=== PATIENT | male | born 1980 | race Caucasian/White ===

== ENCOUNTER 2016-10-21 17:14 | Emergency (ER) | payer MEDICAID ==
[~2016-10-21] VITALS: Ht 175.3 cm; Wt 93.4 kg
[2016-10-21 18:36] VITALS: BP 152/96
[2016-10-21] MEDS ORDERED: FLAGYL250 MG PO (18:55)
[2016-10-21] MEDS ORDERED: GOOD SENSE OMEP20 MG PO (18:55)
--- NOTE | 2016-10-21 20:26 | NUR ---
TO ER BED 1
--- NOTE | 2016-10-21 20:30 | NUR ---
36 Y/O M HERE C/O R ABD PAIN X 1 WK. PT STATES HAD N/VD ON Friday10/17/16 AND WAS SEEN BY PMD. PT WAS GIVEN ZOFRAM AND LOMOTIL FOR DIARRHEA AND HAS BEING CONSTIPATED SINCE TEN. NO S/S OF DISTRESS NOTED AT THIS MOMENT.
[2016-10-21 23:12] VITALS: BP 141/81
--- NOTE | 2016-10-21 23:12 | NUR ---
PER ER MD Patient STABLE FOR discharged with v/s stable. Written and verbal after care instructions given and explained. Patient alert, oriented and verbalized understanding of instructions. Ambulatory with steady gait. All questions addressed prior to discharge. ID band removed. Patient advised to follow up with PMD OR COME BACK TO ER IF CONDITION WORSENS. Rx of LACTULOSE given. Patient educated on indication of medication including possible reaction and side effects. Opportunity to ask questions provided and answered.
== END 2016-10-21 23:12 | disposition home or self-care (01) ==
LOC: MED 17:14
DX: K59.00 Constipation, unspecified (principal); R03.0 Elevated blood-pressure reading, without diagnosis of hypertension; Z88.0 Allergy status to penicillin

== ENCOUNTER 2020-07-20 12:49 | Inpatient (IN) | payer MEDICAID, SELFPAY ==
[~2020-07-20] VITALS: Ht 172.7 cm; Wt 99.8 kg
[~2020-07-20 12:49] MED LIST: METR-520 PO; OMEP20TC12 PO
[2020-07-20 13:03] VITALS: BP 150/90
--- NOTE | 2020-07-20 13:15 | NUR ---
Pt c/o lower abdominal pain with left groin pain. pt reports penile and testicle swelling with painful urination and dsyuria. Reports that pain began when he stretched upon waking up approx 3-4 days ago. HX: LEFT INGORIN HERNIA REPAIRMENT
[2020-07-20 14:31] LABS: BASOPHILS # (AUTO) 0.2 K/uL (0.00-0.22); BASOPHILS % (AUTO) 4.9 % (0.0-2.0); EOSINOPHILS # (AUTO) 0.1 K/uL (0-0.4); EOSINOPHILS % (AUTO) 1.6 % (0.0-4.0); HEMATOCRIT 20.4 % (36-52); LYMPHOCYTES # (AUTO) 0.5 K/uL (2.0-11.5); LYMPHOCYTES % (AUTO) 11.7 % (20.5-51.1); MEAN CORPUSCULAR HEMOGLOBIN 36 pg (27-31); MEAN CORPUSCULAR HGB CONC 34 g/dL (33-37); MEAN CORPUSCULAR VOLUME 105.5 fL (80-94); MONOCYTES # (AUTO) 0.5 K/uL (0.8-1.0); MONOCYTES % (AUTO) 12.1 % (1.7-9.3); NEUTROPHILS % (AUTO) 69.7 % (42.2-75.2); PLATELET COUNT (AUTO) 71 K/uL (140-450); RED BLOOD CELL COUNT(AUTO) 1.93 MIL/uL (4.20-6.10); RED CELL DISTRIBUTION WIDTH 15.2 % (11.6-13.7); WHITE BLOOD COUNT (AUTO) 4.4 K/uL (4.8-10.8)
--- NOTE | 2020-07-20 14:44 | NUR ---
CRITICAL LABS RECEIVED FROM LAB ANKIT): HGB- 7 HCT- 20.4
--- NOTE | 2020-07-20 14:46 | NUR ---
DR HOOD MADE AWARE OF CRITICAL LABS
[2020-07-20 14:56] LABS: ALBUMIN 1.6 g/dL (3.4-5.0); CARBON DIOXIDE 19.7 mmol/L (21-32); CREATININE 1.1 mg/dL (0.6-1.3); POTASSIUM 4.7 mmol/L (3.5-5.1); TOTAL BILIRUBIN 6.1 mg/dL (0.0-1.0)
--- NOTE | 2020-07-20 15:36 | NUR ---
PARTH SWAB COLLECTED AND SENT TO THE LAB.
[2020-07-20 17:34] LABS: PROTHROMBIN TIME 18.1 secs (10.8-13.4)
[2020-07-20] MEDS ORDERED: guaiFENesin DM 200/20 MG-10 ML 10 ML UDC PO PRN (18:35)
[2020-07-20] MEDS ORDERED: ONDANSETRON 4 MG/2 ML VIAL IM/IVP PRN (18:35)
[2020-07-20] MEDS ORDERED: DOCUSATE SODIUM 100 MG GELCAP PO PRN (18:35)
[2020-07-20] MEDS ORDERED: POTASSIUM CHLORIDE 10 MEQ TABER PO PRN (18:35)
[2020-07-20] MEDS ORDERED: ACETAMINOPHEN 325 MG TAB PO PRN (18:35)
--- NOTE | 2020-07-20 18:51 | NUR ---
[facility]
[2020-07-20] MEDS: NACL 0.9% 1,000 ML IV SCH (19:07)
--- NOTE | 2020-07-20 19:10 | NUR ---
recived report from [facility]. transfer of care at this time.
--- NOTE | 2020-07-20 19:14 | NUR ---
REPORT GAVE TO HANNAH ZAMUDIO. TX OF CARE AT THIS TIME.
--- NOTE | 2020-07-20 19:15 | NUR ---
rad at bedside.
[2020-07-20 19:17] LABS: CHOL/HDL RATIO 4.4 (1-4.5); FREE T4 (FREE THYROXINE) 1.39 ng/dL (0.76-1.46); THYROID STIMULATING HORMONE 2.07 uIU/mL (0.34-3.74)
--- NOTE | 2020-07-20 19:30 | NUR ---
CALLED NUTRITION TO CHECK ON STATUS OF FOOD ORDER
--- NOTE | 2020-07-20 19:45 | NUR ---
DINNER TRAY PROVIDED TO PT.
--- NOTE | 2020-07-20 20:00 | NUR ---
CALLED TO GIVE REPORT TO HANNAH OH. EXT. [id number]
--- NOTE | 2020-07-20 20:00 | NUR ---
RECEIVED PATIENT IN STABLE CONDITION FROM ER NURSE FOR CONTINUITY OF CARE. AAOX4. RESPIRATIONS EVEN, UNLABORED. SKIN ASSESSMENT COMPLETED. SKIN WARM, DRY AND INTACT. IV SITE TO RIGHT AC 18G PATENT/INTACT, INFUSING FLUIDS WELL. PATIENT C/O LOWER LEFT ABDOMINAL PAIN. WILL MEDICATE ORDERED. NO S/S ACUTE DISTRESS. ABDOMEN ROUND, NONTENDER. BOWEL SOUNDS ACTIVE X4 QUADRANTS. PATIENT IS CONTINENT OF B/B. MRSA SCREEN COMPLETED. PATIENT ORIENTED TO ROOM/STAFF AND CALL LIGHT. PLAN OF CARE DISCUSSED. CALL LIGHT WITHIN REACH. Addendum: 07/20/20 at 2303 by Christina Holly RN ADD: PATIENT HAS A CH CATHETER WITH DARK RED URINE DRAINING TO GRAVITY.
--- NOTE | 2020-07-20 20:24 | NUR ---
Patient will be admitted to care of [facility]. Admited to TELE. Will go to room 105B. Belongings list completed. Report to HANNAH OH.
[2020-07-20] MEDS: HYDROcodone/APAP 7.5/325 MG 1 TAB PO PRN (20:56)
--- NOTE | 2020-07-20 20:56 | NUR ---
PATIENT C/O ACHING LEFT LOWER ABDOMINAL PAIN 02/15. MEDICATED ORDERED.
[2020-07-20 21:38] LABS: APPEARANCE,URINE CLEAR (CLEAR); BILIRUBIN,URINE 2+ (NEGATIVE); BLOOD, URINE NEGATIVE (NEGATIVE); COLOR,URINE YELLOW (YELLOW); LEUKOCYTE ESTERASE ,URINE NEGATIVE (NEGATIVE); NITRITE, URINE NEGATIVE (NEGATIVE); UGLUCOSE NEGATIVE (NEGATIVE)
[2020-07-20 21:47] LABS: BARBITURATE, URINE NEGATIVE ng/ml (NEG <=200); BENZODIAZEPINE, URINE NEGATIVE ng/mL (NEG <=200); CANNABINOID, URINE NEGATIVE ng/mL (NEG <=50); COCAINE, URINE NEGATIVE ng/mL (NEG <=300); OPIATE, URINE NEGATIVE ng/mL (NEG <=2000); PHENCYCLIDINE SCREEN,URINE NEGATIVE ng/mL (NEG <=25)
--- NOTE | 2020-07-20 21:56 | NUR ---
REASSESSED PAIN LEVEL AT 2/10, TOLERABLE PAIN LEVEL.
[2020-07-20] MEDS: ZOLPIDEM 5 MG TAB PO PRN (22:33)
--- NOTE | 2020-07-20 23:02 | NUR ---
PATIENT IS ON HIS PHONE AND IN NO DISTRESS AT THIS TIME.
[2020-07-21] VITALS: BP 107/64
--- NOTE | 2020-07-21 01:37 | NUR ---
PATIENT IS ASLEEP. NO S/S ACUTE DISTRESS. CALL LIGHT WITHIN REACH.
--- NOTE | 2020-07-21 03:35 | NUR ---
MADE ROUNDS. PATIENT IS ASLEEP. NO S/S ACUTE DISTRESS. CALL LIGHT WITHIN REACH.
[2020-07-21 04:00] VITALS: BP 107/69
--- NOTE | 2020-07-21 05:00 | NUR ---
PATIENT IS SLEEPING WELL. NO C/O PAIN. NO S/S ACUTE DISTRESS. CALL LIGHT WITHIN REACH.
[2020-07-21 06:32] LABS: BASOPHILS % (AUTO) 1.1 % (0.0-2.0); EOSINOPHILS # (AUTO) 0.1 K/uL (0-0.4); LYMPHOCYTES # (AUTO) 0.7 K/uL (2.0-11.5); LYMPHOCYTES % (AUTO) 23.2 % (20.5-51.1); MEAN CORPUSCULAR HEMOGLOBIN 37 pg (27-31); MEAN CORPUSCULAR HGB CONC 35 g/dL (33-37); MEAN CORPUSCULAR VOLUME 105.5 fL (80-94); MONOCYTES # (AUTO) 0.4 K/uL (0.8-1.0); MONOCYTES % (AUTO) 12.2 % (1.7-9.3); NEUTROPHILS # (AUTO) 1.8 K/uL (1.8-7.7); NEUTROPHILS % (AUTO) 60.5 % (42.2-75.2); PLATELET COUNT (AUTO) 55 K/uL (140-450); RED BLOOD CELL COUNT(AUTO) 1.68 MIL/uL (4.20-6.10); RED CELL DISTRIBUTION WIDTH 15.4 % (11.6-13.7)
[2020-07-21 06:50] LABS: CARBON DIOXIDE 20.6 mmol/L (21-32); CREATININE 1.2 mg/dL (0.6-1.3); POTASSIUM 4.6 mmol/L (3.5-5.1)
[2020-07-21 07:15] LABS: HEMOGLOBIN 6.2 g/dL (12.0-18.0)
[2020-07-21 07:16] LABS: HEMATOCRIT 17.8 % (36-52)
[2020-07-21 08:00] VITALS: BP 130/76
--- NOTE | 2020-07-21 08:42 | NUR ---
PATIENT HAS BEEN SCREENED AND CATEGORIZED MODERATE NUTRITION RISK. PATIENT WILL BE SEEN WITHIN 3-5 DAYS OF ADMISSION. 07/23/20 07/25/[address]
[2020-07-21] MEDS: PANTOPRAZOLE 40 MG TABEC PO SCH (09:33)
[2020-07-21] MEDS: SODIUM CHLORIDE 1 GM TAB PO SCH (09:33)
--- NOTE | 2020-07-21 10:15 | NUR ---
PT W/ NO PAIN OR DISCOMFORT IN SEMIFOWLERS.
[2020-07-21] MEDS: NACL 0.9% 1,000 ML IV SCH (11:37)
[2020-07-21] MEDS: ACETAMINOPHEN 325 MG TAB PO SCH ×3 (12:27→20:28)
--- NOTE | 2020-07-21 12:58 | NUR ---
SOCIAL WORK NOTE: Patient's Orientation Person Situation Place Time Information Provided By PATIENT Comments SW CONTACTED PATIENT TELEPHONICALLY AND COMPLETED ASSESSMENT. SW VERIFIED DEMOGRAPHICS. PATIENT PROVIDED ALTERATIVE EMERGENCY CONTACT: OTILIA HERNANDEZ [phone] BECAUSE EMERGENCY CONTACT ON FACE SHEET WAS INCORRECT. Jail Keeper, Realtionship and Phone Number OTILIA RAY [phone] Healthcare Power of Vegetable Farmworker No Does Patient Have a POLST No Identifying Problems Substance Abuse Is A Social Work Consult Needed No Mandate Report Filed No Explanation Of Identifying Problems PATIENT IS A 40-YEAR-OLD MALE ADMITTED FOR HYPONATREMIA AND SEVERE ANEMIA. PATIENT HAS PMHX OF ETOH ABUSE AND LIVER CIRRHOSIS. SW INQUIRED ABOUT SUBSTANCE ABUSE BUT PATIENT REFUSED SUBSTANCE ABUSE RESOURCES AND STATED HE DOES NOT HAVE A PROBLEM. PATIENT STATED THAT HE DRINKS 6 BEERS A DAY. PATIENT DENIED MENTAL HEALTH HISTORY. Admitted From Home Pre-Admission Level Of Functioning Status Independent/Ambulatory Prior Resources/Services Used In Last 12 Months No Prior Resources Used Prior DME No Prior DME Used Dialysis Comments N/A Living Situation Lives With Friend/Other Rents A Room Patient Had Caregiver No Home Support No Caregiver Issues Financial Issues No Known Financial Issue Factors/Needs Drug/Alcohol Treatment Explanation And Or Other Factors Affecting/Possible DC Needs PATIENT REFUSED SUBSTANCE ABUSE RESOURCES. PATIENT STATED THAT HIS AUNT WILL PICK HIM UP AT DISCHARGE. Pt/Rep Participated In Discharge Plan Yes Patient/Family Agress With Discharge Plan Yes Discharge Plan Comments TENTATIVE DISCHARGE PLAN IS FOR PATIENT TO RETURN HOME. DC Plan Status Initiated
--- NOTE | 2020-07-21 13:05 | NUR ---
PT STATES NO PAIN AT THE MOMENT AND IN NO APPARENT DISTRESS.
[2020-07-21 14:11] VITALS: BP 122/71
[2020-07-21] MEDS: HYDROcodone/APAP 7.5/325 MG 1 TAB PO PRN (14:29)
--- NOTE | 2020-07-21 15:00 | NUR ---
PT GIVEN NORCO AT 1429 FOR 6/10 PAIN AT RLQ, ACHING AND INTERMITTENT AND GRADUAL. PT REASSESSED AND STATED PAIN 1/10 THAT IS TOLERABLE.
[2020-07-21] MEDS ORDERED: ALBUMIN HUMAN 25% 100 ML IV SCH (15:15)
[2020-07-21] MEDS ORDERED: PHYTONADIONE 10 MG in NACL 0.9% 50 ML IV SCH (15:30)
[2020-07-21] MEDS ORDERED: FUROSEMIDE 20 MG TAB PO SCH (16:00)
[2020-07-21] MEDS: LACTULOSE 20 GM/30 ML UDC PO SCH (17:45)
--- NOTE | 2020-07-21 18:05 | NUR ---
PT STATES TOLERABLE PAIN 1/10 AND WOULD LIKE TO REPOSITIOIN FOR PAIN COMFORT. PT TOLERATING WELL AND RESTING SEMIFOWLERS. WILL ENDORSE CARE TO [facility] OR [employer] OBSERVER RN.
--- NOTE | 2020-07-21 19:30 | NUR ---
RECEIVED BEDSIDE ENDORSEMENT FROM AM SHIFT RN. PT IN FOWLERS POSITION, ON ROOM AIR, NO SOB, DENIES PAIN, IVF INFUSING, CH CATH IN PLACE, SAFETY MEASURES IN PLACE, PLAN OF CARE DISCUSSED, CALL LIGHT WITHIN REACH.
[2020-07-21 20:00] VITALS: BP 111/74
[2020-07-21] MEDS: SENNA 8.6 MG TAB PO SCH (20:28)
--- NOTE | 2020-07-21 20:32 | NUR ---
PT IS AWAKE, DUE MEDS GIVEN ORDERED, MED EDUCATION PROVIDED.
[2020-07-21] MEDS ORDERED: ALBUMIN HUMAN 25% 100 ML IV ONE (20:37)
[2020-07-22] VITALS: BP 117/74
--- NOTE | 2020-07-22 | NUR ---
CHECKED PT, ASLEEP, V/S TAKEN, NO C/O PAIN.
--- NOTE | 2020-07-22 02:56 | NUR ---
PT IS SLEEPING, RESPIRATION EVEN AND UNLABORED, CALL LIGHT WITHIN REACH.
[2020-07-22 04:00] VITALS: BP 126/78
--- NOTE | 2020-07-22 06:52 | NUR ---
CHECKED PT, SLEEPING, RESPIRATION EVEN AND UNLABORED, STABLE, NO DISTRESS, KEPT WARM, DRY AND COMFORTABLE, ALL NEEDS ATTENDED. CALL LIGHT WITHIN REACH.
--- NOTE | 2020-07-22 06:53 | NUR ---
V/S TAKEN AND RECORDED, WNL.
[2020-07-22 07:21] LABS: EOSINOPHILS # (AUTO) 0.1 K/uL (0-0.4); EOSINOPHILS % (AUTO) 2.3 % (0.0-4.0); LYMPHOCYTES # (AUTO) 0.7 K/uL (2.0-11.5); LYMPHOCYTES % (AUTO) 25.7 % (20.5-51.1); MEAN CORPUSCULAR HEMOGLOBIN 36 pg (27-31); MEAN CORPUSCULAR HGB CONC 34 g/dL (33-37); MEAN CORPUSCULAR VOLUME 103.7 fL (80-94); MONOCYTES # (AUTO) 0.4 K/uL (0.8-1.0); MONOCYTES % (AUTO) 13.2 % (1.7-9.3); NEUTROPHILS # (AUTO) 1.7 K/uL (1.8-7.7); NEUTROPHILS % (AUTO) 57.8 % (42.2-75.2); PLATELET COUNT (AUTO) 56 K/uL (140-450); RED BLOOD CELL COUNT(AUTO) 1.92 MIL/uL (4.20-6.10); RED CELL DISTRIBUTION WIDTH 16.3 % (11.6-13.7); WHITE BLOOD COUNT (AUTO) 2.9 K/uL (4.8-10.8)
[2020-07-22 07:25] LABS: ANION GAP 13.2 (8-16); CARBON DIOXIDE 20.3 mmol/L (21-32); POTASSIUM 4.5 mmol/L (3.5-5.1)
[2020-07-22 08:05] LABS: HEMOGLOBIN 6.9 g/dL (12.0-18.0)
--- NOTE | 2020-07-22 08:05 | NUR ---
H/H .05/28. RECEIVED CRITICAL LAB VALUE FROM GIANNI PEÑA). WILL NOTIFY
[2020-07-22 08:08] LABS: T3 UPTAKE 39 % (24-39); T4 (THYROXINE) 5.8 ug/dL (4.5-12.0)
--- NOTE | 2020-07-22 08:09 | NUR ---
Hood PARSON NOTIFIED CRITICAL LAB VALUE. AWAITING MD ORDER.
[2020-07-22] MEDS: LACTULOSE 20 GM/30 ML UDC PO SCH ×3 (09:25→17:54)
[2020-07-22] MEDS: FUROSEMIDE 20 MG/2 ML VIAL IVP SCH (09:25)
[2020-07-22] MEDS: PANTOPRAZOLE 40 MG TABEC PO SCH (09:26)
[2020-07-22] MEDS: SPIRONOLACTONE 25 MG TAB PO SCH (09:27)
[2020-07-22] MEDS: SODIUM CHLORIDE 1 GM TAB PO SCH (09:27)
[2020-07-22] MEDS ORDERED: ALBUMIN HUMAN 25% 100 ML IV SCH (10:00)
[2020-07-22 12:00] VITALS: BP 138/79
[2020-07-22 16:00] VITALS: BP 109/73
--- NOTE | 2020-07-22 16:00 | NUR ---
BT DONE WITH NO S/S OF REACTION. NO SOB. AFEBRILE. DENIES CHEST PAIN. WILL CONTINUE TO MONITOR.
--- NOTE | 2020-07-22 19:15 | NUR ---
REPORT GIVEN TO PM RN. ENDORSED PT WITH NO S/S OF DISTRESS. NO CHANGE OF CONDITION.
[2020-07-22 20:01] VITALS: BP 129/68
[2020-07-22] MEDS: SENNA 8.6 MG TAB PO SCH ×2 (21:00→21:07)
[2020-07-22] MEDS: ZOLPIDEM 5 MG TAB PO PRN (22:21)
[2020-07-23] VITALS: BP 127/78
[2020-07-23 04:00] VITALS: BP 126/73
--- NOTE | 2020-07-23 07:15 | NUR ---
RECEIVED REPORT FROM NIGHT NURSE FOR CONTINUITY OF CARE, PT IS STABLE, PT AAOX4, UKRAINIAN SPEAKING, PT IS ASLEEP, PT HAS RIGHT AC 18G AND LH 22G SALINE LOCK, PT AMBULATORY, CH CATH IN PLACE, BED IN LOW POSITION, SAFETY MEASURES IN PLACE, CALL LIGHT WITHIN REACH, WILL CONTINUE TO MONITOR.
[2020-07-23 07:22] LABS: ANION GAP 10.6 (8-16); CARBON DIOXIDE 21.5 mmol/L (21-32); CREATININE 0.9 mg/dL (0.6-1.3); POTASSIUM 4.1 mmol/L (3.5-5.1)
[2020-07-23 07:31] LABS: BASOPHILS % (AUTO) 1.2 % (0.0-2.0); EOSINOPHILS # (AUTO) 0.1 K/uL (0-0.4); EOSINOPHILS % (AUTO) 2.1 % (0.0-4.0); HEMOGLOBIN 7.4 g/dL (12.0-18.0); LYMPHOCYTES # (AUTO) 0.7 K/uL (2.0-11.5); MEAN CORPUSCULAR HEMOGLOBIN 36 pg (27-31); MEAN CORPUSCULAR HGB CONC 35 g/dL (33-37); MEAN CORPUSCULAR VOLUME 102.3 fL (80-94); MONOCYTES # (AUTO) 0.3 K/uL (0.8-1.0); MONOCYTES % (AUTO) 11.9 % (1.7-9.3); NEUTROPHILS # (AUTO) 1.5 K/uL (1.8-7.7); NEUTROPHILS % (AUTO) 56.8 % (42.2-75.2); PLATELET COUNT (AUTO) 52 K/uL (140-450); RED BLOOD CELL COUNT(AUTO) 2.06 MIL/uL (4.20-6.10); RED CELL DISTRIBUTION WIDTH 16.3 % (11.6-13.7); WHITE BLOOD COUNT (AUTO) 2.7 K/uL (4.8-10.8)
--- NOTE | 2020-07-23 07:41 | NUR ---
Handoff with HANNAH Weller. Chris Tobin RN
[2020-07-23 08:00] VITALS: BP 128/72
[2020-07-23] MEDS: LACTULOSE 20 GM/30 ML UDC PO SCH ×3 (09:30→15:59)
[2020-07-23] MEDS: PANTOPRAZOLE 40 MG TABEC PO SCH (09:30)
[2020-07-23] MEDS: SPIRONOLACTONE 25 MG TAB PO SCH (09:30)
[2020-07-23] MEDS: FUROSEMIDE 20 MG/2 ML VIAL IVP SCH (09:31)
--- NOTE | 2020-07-23 09:36 | NUR ---
ADMINISTERED SCHEDULED MEDICATION, MEDICATION EDUCATION PROVIDED, PT TOLERATED WELL, PT IS STABLE, CALL LIGHT WITHIN REACH, WILL CONTINUE TO MONITOR,
--- NOTE | 2020-07-23 11:30 | NUR ---
PT IS SITTING IN BED, PT IS STABLE, NO SIGNS OF DISTRESS NOTED, CALL LIGHT WITHIN REACH, WILL CONTINUE TO MONITOR.
[2020-07-23 12:00] VITALS: BP 106/65
--- NOTE | 2020-07-23 13:20 | NUR ---
ADMINISTERED SCHEDULED MEDICATION, MEDICATION EDUCATION PROVIDED, PT TOLERATED WELL, PT IS STABLE, CALL LIGHT WITHIN REACH, WILL CONTINUE TO MONITOR.
[2020-07-23 16:00] VITALS: BP 132/83
--- NOTE | 2020-07-23 16:01 | NUR ---
ADMINISTERED SCHEDULED MEDICATION, MEDICATION EDUCATION PROVIDED, PT VERBALIZED UNDERSTANDING, PT TOLERATED WELL, PT IS STABLE, CALL LIGHT WITHIN REACH, WILL CONTINUE TO MONITOR.
--- NOTE | 2020-07-23 19:15 | NUR ---
ENDORSE PT TO NIGHT NURSE FOR CONTINUITY OF CARE, PT IS STABLE
--- NOTE | 2020-07-23 19:20 | NUR ---
RECEIVED PT AWAKE SITTING UP ON BED, AAOX4, DENIES ANY PAIN, NO SOB NOTED, PLAN OF CARE DISCUSSED, SAFETY MEASURES IN PLACE, CALL LIGHT WITHIN REACH.
[2020-07-23 20:00] VITALS: BP 131/89
[2020-07-23] MEDS: SENNA 8.6 MG TAB PO SCH (22:07)
[2020-07-23] MEDS: ZOLPIDEM 5 MG TAB PO PRN (22:07)
--- NOTE | 2020-07-23 22:10 | NUR ---
PT SEEN AMBULATING BACK TO BED WITH STEADY GAIT, SLEEPING PILL AND DUE STOOL SOFTENER GIVEN, TOLERATED WELL, ALL NEEDS ATTENDED.
--- NOTE | 2020-07-23 23:40 | NUR ---
ROUNDS MADE, SEEN PT SLEEPING, NO SIGNS OF DISTRESS, CH CATHETER DRAINING WELL WITH FERNY URINE OUTPUT, CONTINUE TO MONITOR CLOSELY.
[2020-07-24 04:00] VITALS: BP 144/100
--- NOTE | 2020-07-24 04:00 | NUR ---
PT SLEEPING, EASILY AROUSABLE, DENIES ANY PAIN, VITAL SIGNS TAKEN, BP SLIGHTLY ELEVATED, ASYMPTOMATIC, NO SIGNS OF SOB, MONITORED CLOSELY.
--- NOTE | 2020-07-24 07:10 | NUR ---
PT SLEEPING, NO SIGNS OF DISTRESS, REPORT GIVEN TO RN KRISTIN FOR CONTINUITY OF CARE.
--- NOTE | 2020-07-24 07:15 | NUR ---
RECEIVED PT ON BED AAOX4. NO SOB NOTED. NO C/O PAIN AT THIS TIME. IV TO RT AND LT UPPER EXTREMITIES PATENT AND INTACT. CHEST. DIMINISHED AIR ENTRY TO THE BASES, OTHERWISE CLEAR. ABDOMEN, DISTENDED, BOWEL SOUNDS PRESENT. +2 PITTING EDEMA NOTED ON BLE. WITH CH DRAINING SMALL AMOUNTS OF DARK FERNY URINE. INSTRUCTED PT TO CALL FOR ASSISTANCE, CALL LIGHT WITHIN REACH, PT VERBALIZED UNDERSTANDING.
[2020-07-24 07:17] LABS: BASOPHILS % (AUTO) 1.3 % (0.0-2.0); EOSINOPHILS # (AUTO) 0.1 K/uL (0-0.4); EOSINOPHILS % (AUTO) 2.3 % (0.0-4.0); HEMATOCRIT 21.1 % (36-52); HEMOGLOBIN 7.4 g/dL (12.0-18.0); LYMPHOCYTES # (AUTO) 0.7 K/uL (2.0-11.5); LYMPHOCYTES % (AUTO) 25.3 % (20.5-51.1); MEAN CORPUSCULAR HEMOGLOBIN 36 pg (27-31); MEAN CORPUSCULAR HGB CONC 35 g/dL (33-37); MEAN CORPUSCULAR VOLUME 102.4 fL (80-94); MONOCYTES # (AUTO) 0.4 K/uL (0.8-1.0); MONOCYTES % (AUTO) 13.5 % (1.7-9.3); NEUTROPHILS # (AUTO) 1.7 K/uL (1.8-7.7); NEUTROPHILS % (AUTO) 57.6 % (42.2-75.2); PLATELET COUNT (AUTO) 57 K/uL (140-450); RED BLOOD CELL COUNT(AUTO) 2.06 MIL/uL (4.20-6.10); RED CELL DISTRIBUTION WIDTH 16.6 % (11.6-13.7); WHITE BLOOD COUNT (AUTO) 2.9 K/uL (4.8-10.8)
--- NOTE | 2020-07-24 07:30 | NUR ---
RECEIVED PT ON BED AAOX4. NO SOB NOTED. NO C/O PAIN AT THIS TIME. IV TO RT AND LT UPPER EXTREMITIES PATENT AND INTACT. CHEST. DIMINISHED AIR ENTRY TO THE BASES, OTHERWISE CLEAR. ABDOMEN, DISTENDED, BOWEL SOUNDS PRESENT. NO EDEMA NOTED. INSTRUCTED PT TO CALL FOR ASSISTANCE, CALL LIGHT WITHIN REACH, PT VERBALIZED UNDERSTANDING. Addendum: 07/24/20 at 0833 by Sarahi Foster RN PLS DISREGARD ABOVE NOTES, WRONG ENTRY.
[2020-07-24 08:00] VITALS: BP 135/76
[2020-07-24] MEDS: FUROSEMIDE 20 MG/2 ML VIAL IVP SCH (09:46)
[2020-07-24] MEDS: SPIRONOLACTONE 25 MG TAB PO SCH (09:46)
[2020-07-24] MEDS: LACTULOSE 20 GM/30 ML UDC PO SCH (09:47)
[2020-07-24] MEDS: PANTOPRAZOLE 40 MG TABEC PO SCH (09:48)
[2020-07-24] MEDS ORDERED: CEPH250C16 PO (11:54)
[2020-07-24] MEDS ORDERED: FURO-570 PO (11:54)
[2020-07-24] MEDS ORDERED: SPIR50TA PO (11:55)
--- NOTE | 2020-07-24 12:20 | NUR ---
PT CONSUMED 100% OF BREAKFAST AND LUNCH. FOOD TOLERATED WELL. NO N&V NOTED.
[2020-07-24] MEDS ORDERED: FLU VACCINE QS2020-21 0.5 ML SYR IMVAC PRN (14:50)
--- NOTE | 2020-07-24 14:55 | NUR ---
CH CATHETER REMOVED ORDERED, PT TOLERATED PROCEDURE WELL.
--- NOTE | 2020-07-24 15:00 | NUR ---
DISCHARGE INSTRUCTIONS GIVEN, PT VERBALIZED UNDERSTANDING. PT MADE AWARE THAT HIS PRESCRIPTIONS WERE SENT TO PT'S PREFERRED PHARMACY. ARM BANDS AND IV REMOVED, CANNULA TIP INTACT.
--- NOTE | 2020-07-24 15:15 | NUR ---
PT ESCORTED OUT TO THE FRONT LOBBY IN STABLE CONDITION, AMBULATORY. NO SOB NOTED. NO COMPLAINTS MADE. PT D/C HOME WITH .
== END 2020-07-24 15:20 | disposition home or self-care (01) | DRG 501 ==
LOC: MED 12:49 → MTU 16:17
PROVIDERS: ADMIT Family Medicine; ATTEND Family Medicine
PROC: 30233N1 Transfusion of Nonautologous Red Blood Cells into Peripheral Vein, Percutaneous Approach (ICD-10-PCS; principal; 2020-07-21)
DX: N43.3 Hydrocele, unspecified (principal); G93.41 Metabolic encephalopathy; K74.60 Unspecified cirrhosis of liver; E87.1 Hypo-osmolality and hyponatremia; R18.8 Other ascites; E43 Unspecified severe protein-calorie malnutrition; D64.9 Anemia, unspecified; E87.70 Fluid overload, unspecified; Z68.33 Body mass index [BMI] 33.0-33.9, adult; D61.818 Other pancytopenia; R16.1 Splenomegaly, not elsewhere classified; K65.2 Spontaneous bacterial peritonitis; E78.5 Hyperlipidemia, unspecified; Z90.79 Acquired absence of other genital organ(s); J98.11 Atelectasis; I25.10 Atherosclerotic heart disease of native coronary artery without angina pectoris; Z88.0 Allergy status to penicillin; Z90.49 Acquired absence of other specified parts of digestive tract; Z20.828 Contact with and (suspected) exposure to other viral communicable diseases
CPT/HCPCS: 36415; 51702; 71045; 76705; 80048; 80053; 80305; 81003; 82140; 82150; 83036; 83690; 83735; 83880; 84100; 84436; 84439; 84443; 84479; 84484; 85025; 85610; 85730; 86886; 86900; 86901; 86920; 87081; 99285; J0696; J1940; J3430; J7030; J7060; P9016; P9046; Q0163